=== PATIENT | female | born 2000 | race Two or more races ===

== ENCOUNTER 2021-10-03 05:47 | Day surgery (SDC) | payer OTHER ==
[2021-10-03] MEDS ORDERED: MACROBID 100 M100 MG PO (10:04)
[2021-10-03] MEDS ORDERED: ULTRACET PO (10:04)
== END 2021-10-03 14:30 | disposition home or self-care (01) ==
LOC: CIR.AMB 05:47
PROVIDERS: ATTEND Obstetrics & Gynecology Gynecology
DX: N36.1 Urethral diverticulum (principal); N76.1 Subacute and chronic vaginitis; Z86.16 Personal history of COVID-19; Z77.22 Contact with and (suspected) exposure to environmental tobacco smoke (acute) (chronic); Z20.822 Contact with and (suspected) exposure to COVID-19

== ENCOUNTER 2022-02-20 00:04 | Emergency (ER) | payer OTHER ==
[~2022-02-20] VITALS: Ht 160 cm; Wt 59.0 kg
[~2022-02-20 00:04] MED LIST: MACROBID 100 M100 MG PO; ULTRACET PO
[2022-02-20] MEDS ORDERED: DICLOFENAC POTA50 MG PO (03:52)
== END 2022-02-20 04:51 | disposition home or self-care (01) ==
LOC: ER 00:04
DX: H61.21 Impacted cerumen, right ear (principal); H92.01 Otalgia, right ear; Z20.822 Contact with and (suspected) exposure to COVID-19

== ENCOUNTER 2022-10-06 17:33 | Emergency (ER) | payer OTHER ==
[~2022-10-06] VITALS: Ht 210.8 cm; Wt 63.5 kg
[~2022-10-06 17:33] MED LIST changes: +DICLOFENAC POTA50 MG PO
== END 2022-10-06 20:43 | disposition home or self-care (01) ==
LOC: ER 17:33
DX: O20.9 Hemorrhage in early pregnancy, unspecified (principal); Z3A.01 Less than 8 weeks gestation of pregnancy

== ENCOUNTER 2022-10-09 16:31 | Emergency (ER) | payer OTHER ==
[~2022-10-09] VITALS: Ht 160 cm; Wt 63.5 kg
== END 2022-10-09 17:38 | disposition home or self-care (01) ==
LOC: ER 16:31
DX: O03.9 Complete or unspecified spontaneous abortion without complication (principal)

== ENCOUNTER 2023-12-18 00:10 | Emergency (ER) | payer OTHER ==
[~2023-12-18] VITALS: Ht 160 cm; Wt 65.8 kg
[2023-12-18] MEDS ORDERED: KETOROLAC TROMETHAMINE 30 MG VIAL IV STA (00:56)
[2023-12-18] MEDS ORDERED: KETOROLAC TROMETHAMINE 30 MG VIAL ONE (01:05)
[2023-12-18 01:51] LABS: HEMATOCRIT 37.8 % (36.0-45.00); HEMOGLOBIN 12.5 g/dL (12.0-15.00); MEAN CELL VOLUME 80.7 fL (80.00-100.00); MEAN CORPUSCULAR HEMOGLOBIN 26.8 pg (27.00-32.0); MEAN CORPUSCULAR HGB CONC 33.2 g/dl (32.0-36.0); PLATELET COUNT 223 K/uL (150-450); RED BLOOD COUNT 4.68 M/uL (4.00-6.00)
[2023-12-18 02:30] LABS: URINE APPEARANCE Clear; URINE BILIRRUBIN Negative (NEGATIVE); URINE BLOOD Negative; URINE COLOR Yellow; URINE GLUCOSE Negative (NEGATIVE); URINE KETONE Negative (NEGATIVE); URINE LEUKOCYTE Negative; URINE NITRATE Negative; URINE PROTEIN Negative (NEGATIVE); URINE UROBILINOGEN 0.2 E.U./dl
[2023-12-18 02:34] LABS: URINE BACTERIA 105.8 uL (0.0-1933); URINE EPITHELIAL CELLS 4.1 uL (0.0-38.8); URINE RBC 7.3 uL (0.0-20.8); URINE WBC 2.2 uL (0.0-23.2)
[2023-12-18] MEDS ORDERED: KETO10TA2 PO (04:02)
== END 2023-12-18 04:08 ==
LOC: ER 00:12
PROVIDERS: General Practice
DX: N83.209 Unspecified ovarian cyst, unspecified side (principal)